=== PATIENT | male | born 1960 | race Caucasian/White ===

== ENCOUNTER 2016-10-20 13:08 | Emergency (ER) | payer OTHER ==
[2016-10-20] MEDS ORDERED: HYDROcodone 10MG/APAP 325MG 1 EA TAB PO ONE (13:23)
[2016-10-20] MEDS ORDERED: IBUPROFEN 200 MG TAB PO ONE (13:23)
[2016-10-20] MEDS ORDERED: diazePAM 2 MG TAB PO ONE (13:24)
[2016-10-20 13:26] VITALS: TEMP 98; O2SAT 99
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
[2016-10-20 14:43] VITALS: BP 180/110
== END 2016-10-20 14:36 | disposition home or self-care (01) ==
LOC: ER 13:08
DX: S16.1XXA Strain of muscle, fascia and tendon at neck level, initial encounter (principal); S20.219A Contusion of unspecified front wall of thorax, initial encounter; I10 Essential (primary) hypertension; F17.220 Nicotine dependence, chewing tobacco, uncomplicated; Z79.899 Other long term (current) drug therapy; V49.40XA Driver injured in collision with unspecified motor vehicles in traffic accident, initial encounter; Y92.410 Unspecified street and highway as the place of occurrence of the external cause

== ENCOUNTER → 2020-07-10 | Outpatient (CLI) | payer OTHER | LOC: GMAE 11:34 | PROVIDERS: ATTEND Family Medicine | DX: Z00.00 Encounter for general adult medical examination without abnormal findings (principal) ==